=== PATIENT | male | born 1990 | race African-American/Black ===

== ENCOUNTER 2017-08-11 02:51 | Emergency (ER) | payer SELFPAY ==
[~2017-08-11] VITALS: Ht 195.6 cm; Wt 117.9 kg
[2017-08-11 03:15] VITALS: BP 112/60
[2017-08-11] MEDS ORDERED: Lidocaine 1% MPF 10mg/ml 5ml INJ ONE (04:15)
[2017-08-11] MEDS ORDERED: Azithromycin 250mg tab ORAL ONE (04:15)
[2017-08-11 05:10] VITALS: BP 118/59
[2017-08-11] MEDS ORDERED: DOXYCYCLINE MO100 MG ORAL (05:14)
[2017-08-11 05:15] VITALS: BP 112/60
--- NOTE | 2017-08-12 00:35 | Emergency Room Report ---
History of Present Illness General Chief Complaint: General Complaint Source: Patient Present Illness HPI Patient presents with concerns of possible STD transmission Reports that his sexual partner had reported possible infection and treatment recently Patient at this time requesting STD check Patient also complained that he had some left hand discomfort Middle finger after striking a glass which had broken this happened several days ago Denies any wrist pain denies any chest pain or shortness of breath Denies any penile discharge denies any abdominal pain denies any testicular pain Allergies: Coded Allergies: No Known Allergies (Unverified , 08/11/17) Patient History Past Medical History: see triage record Pertinent Family History: none Reviewed Nursing Documentation: PMH: Agreed; PSxH: Agreed Nursing Documentation-PMH Hx Asthma: Yes Review of Systems All Other Systems: negative except mentioned in HPI Physical Exam Vital Signs Date Time Temp Pulse Resp B/P (MAP) Pulse Ox O2 Delivery O2 Flow Rate FiO2 08/11/17 02:55 98.4 77 18 114/58 98 Room Air 98.4 Sp02 EP Interpretation: reviewed, normal General Appearance: well appearing, no apparent distress Head: normocephalic, atraumatic Eyes: bilateral eye PERRL, bilateral eye EOMI ENT: hearing grossly normal, normal pharynx Neck: full range of motion, supple Respiratory: lungs clear Cardiovascular #1: regular rate, rhythm Gastrointestinal: non tender, soft Genitourinary: no CVA tenderness Musculoskeletal: normal inspection Neurologic: alert, oriented x3 Skin: other - Secondary healing laceration over the mid middle finger on the left hand, patient able to flex and extend no signs of any tendon involvement Lymphatic: no adenopathy Medical Decision Making Diagnostic Impression: Primary Impression: old laceration ER Course Patient is treated symptomatically for the question of possible STD At this time he is informed that STD testing is not performed and he requires close outpatient STD clinic follow-up The hand laceration is old and secondarily healing And requires close outpatient follow-up as well Last Vital Signs Date Time Temp Pulse Resp B/P (MAP) Pulse Ox O2 Delivery O2 Flow Rate FiO2 08/11/17 05:15 98.4 62 18 112/60 99 Room Air 98.4 Status: improved Disposition: HOME, SELF-CARE Condition: Stable Scripts Doxycycline Monohydrate* (DOXYCYCLINE MONOHYDRATE*) 100 Mg Capsule 100 MG ORAL Q12H, #14 CAP 0 Refills Prov: Faustino Dillard DO 08/11/17 Referrals: NOT CHOSEN [facility],REFERRING (PCP) Patient Instructions: Abrasion, [id number] Additional Instructions: Patient is provided with the discharge instructions notified to follow up with primary doctor in the next 2-3 days otherwise return to the er with any worsening symptoms. Please note that this report is being documented using [employer] technology. This can lead to erroneous entry secondary to incorrect interpretation by the dictating instrument. Faustino Dillard DO Aug 12, 2017 00:35
== END 2017-08-11 05:15 | disposition home or self-care (01) ==
LOC: EMR 03:22
DX: S61.412D Laceration without foreign body of left hand, subsequent encounter (principal); X58.XXXD Exposure to other specified factors, subsequent encounter
CPT/HCPCS: 96372; 99283; J0696

== ENCOUNTER 2017-10-14 08:52 | Emergency (ER) | payer OTHER ==
[~2017-10-14] VITALS: Ht 195.6 cm; Wt 113.4 kg
[~2017-10-14 08:52] MED LIST: DOXYCYCLINE MO100 MG ORAL
[2017-10-14] MEDS ORDERED: NKM (08:59)
[2017-10-14 09:06] VITALS: BP 118/75
[2017-10-14] MEDS ORDERED: Lidocaine 1% MPF 10mg/ml 5ml INJ ONE (09:45)
[2017-10-14] MEDS ORDERED: Bacitracin Oint UD TOPIC ONE (09:55)
--- NOTE | 2017-10-14 09:58 | Emergency Room Report ---
History of Present Illness General Chief Complaint: Laceration Source: Patient Present Illness HPI Patient is a 26-year-old male who presented after the laceration to the left hand. 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 He reports having increased the pain to the finger. He reports having up-to-date tetanus vaccine. Patient states that he was injured as he was reaching to the back of his car and subsequently cut himself accidentally on a metal object. He denies any numbness distally. Allergies: Coded Allergies: No Known Allergies (Unverified , 08/11/17) Patient History Reviewed Nursing Documentation: PMH: Agreed; PSxH: Agreed Nursing Documentation-PM Past Medical History: No Stated History Hx Asthma: Yes Review of Systems All Other Systems: negative except mentioned in HPI Physical Exam Vital Signs Date Time Temp Pulse Resp B/P (MAP) Pulse Ox O2 Delivery O2 Flow Rate FiO2 10/14/17 08:56 98.3 78 18 118/75 96 Room Air 98.2 General Appearance: well appearing, no apparent distress, alert, GCS 15, non- toxic Head: normocephalic, atraumatic ENT: hearing grossly normal, normal voice Neck: full range of motion, supple Respiratory: no respiratory distress, speaking full sentences Neurologic: normal inspection, alert, oriented x3, normal gait Psychiatric: mood/affect normal Skin: laceration - 1cm left ring finger dorsum Procedures Laceration/Wound Repair Laceration/Wound Repair : Wound Location: face Wound's Depth, Shape: linear Medical Decision Making Diagnostic Impression: Primary Impression: Laceration ER Course Patient presented for laceration. Differential diagnoses included foreign body , nerve injury, arterial injury among others. Laceration was repaired with sutures. The patient is advised to follow up with primary care doctor in 1-2 days. Patient is advised to return if any worsening condition or if any changes in status that are concerning. This report is dictated with [employer] tool pusher software which may occasionally lead to discrepancies related to use of this software. Last Vital Signs Date Time Temp Pulse Resp B/P (MAP) Pulse Ox O2 Delivery O2 Flow Rate FiO2 10/14/17 09:06 98.2 76 18 118/75 98 Room Air 98.2 Status: improved Disposition: HOME, SELF-CARE Condition: Stable Scripts Ibuprofen* (MOTRIN*) 600 Mg Tablet 600 MG ORAL Q8H PRN for For Pain, #30 TAB 0 Refills Prov: Torin Ramirez MD 10/14/17 Bacitracin Zinc* (BACITRACIN ZINC*) 1 Each Packet 1 APPLIC TOPIC THREE TIMES A DAY, #20 PACKET Prov: Torin Ramirez MD 10/14/17 Referrals: [facility],REFERR[facility] (PCP) Torin Ramirez MD Oct 14, 2017 09:58
[2017-10-14] MEDS ORDERED: BACITRACIN ZIN1 EACH TOPIC (10:10)
[2017-10-14] MEDS ORDERED: IBUPROFEN600 MG ORAL (10:10)
[2017-10-14 10:22] VITALS: BP 121/75
== END 2017-10-14 10:22 | disposition home or self-care (01) ==
LOC: EMR 09:35
DX: S61.215A Laceration without foreign body of left ring finger without damage to nail, initial encounter (principal); J45.909 Unspecified asthma, uncomplicated; W26.9XXA Contact with unspecified sharp object(s), initial encounter; Y92.810 Car as the place of occurrence of the external cause
CPT/HCPCS: 12001; 99284; Z7502